=== PATIENT | female | born 1950 | race Hispanic/Latino ===

== ENCOUNTER 2019-03-15 10:23 | Outpatient (CLI) | payer MEDICARE ==
--- NOTE | 2019-03-15 16:26 | Mammography Report ---
DIGITAL SCREENING MAMMOGRAM WITH CAD, 03/15/2019 INDICATION: Routine screening mammography. TECHNIQUE: Digital bilateral 2D mammography was obtained in the craniocaudal and mediolateral obliq ue projections. This examination was interpreted with the benefit of Computer-Aided Detection analysi s. COMPARISON: 10/14/2015 FINDINGS: Breast Density: The breasts are almost entirely fatty. There is no evidence of dominant mass, suspicious calcifications or architectural distortion in eithe r breast. IMPRESSION: No mammographic evidence of malignancy. Follow up recommendation: Routine yearly BI-RADS Category 1: Negative. A "normal" or negative report should not discourage follow up or biopsy of a clinically significant f inding. A written summary of these findings will be mailed to the patient. The patient will be entered into a mammography reporting system which will generate a reminder letter for the patient's next appointmen t at the appropriate interval. The [employer] recommends yearly mammograms starting at age 40 and continuing as l bahman as a woman is in good health. Breast MRI is recommended for women with an approximate 20-25% or greater lifetime risk of breast cancer, including women with a strong family history of breast or ova huong cancer or who have been treated for Hodgkin's disease. Signer Name: Adelso Pedraza MD Signed: 03/15/2019 4:22 PM Workstation Name: [id number]
== END 2019-03-15 10:24 | disposition home or self-care (01) ==
LOC: SPVWC 10:23
PROVIDERS: ATTEND Internal Medicine Hematology & Oncology
DX: Z12.31 Encounter for screening mammogram for malignant neoplasm of breast (principal); C43.59 Malignant melanoma of other part of trunk; D68.52 Prothrombin gene mutation
CPT/HCPCS: 77067

== ENCOUNTER 2020-04-17 13:19 | Outpatient (CLI) | payer MEDICARE | END 2020-04-17 13:20 | disposition home or self-care (01) | LOC: SPVWC 13:19 | PROVIDERS: ATTEND Internal Medicine Hematology & Oncology | DX: Z12.31 Encounter for screening mammogram for malignant neoplasm of breast (principal) | CPT/HCPCS: 77067 ==